=== PATIENT | female | born 1950 | race Two or more races ===

== ENCOUNTER 2020-11-26 10:30 | Inpatient (IN) | payer OTHER ==
[~2020-11-26] VITALS: Ht 154.9 cm; Wt 65.8 kg
[2020-11-26] MEDS ORDERED: NORVASC5 MG PO (15:15)
[2020-11-26] MEDS ORDERED: ATORVASTATIN CA10 MG PO (15:16)
[2020-11-26] MEDS ORDERED: VITAMIN D PO (15:17)
[2020-11-28] MEDS ORDERED: VITAMIN D310 MC4 (09:39)
[2020-12-01] MEDS ORDERED: PERCOCET 5-3251 EACH PO (10:57)
== END 2020-12-01 14:07 | disposition home or self-care (01) | DRG 331 ==
LOC: EDSEX 11-28 06:05 → O/R 11-28 06:05 → SURH 11-28 10:30
PROVIDERS: Obstetrics & Gynecology Gynecologic Oncology; ADMIT Surgery; ATTEND Surgery
PROC: 0UT94ZZ Resection of Uterus, Percutaneous Endoscopic Approach (ICD-10-PCS; 2020-11-28)
PROC: 0UT24ZZ Resection of Bilateral Ovaries, Percutaneous Endoscopic Approach (ICD-10-PCS; 2020-11-28)
PROC: 0UT74ZZ Resection of Bilateral Fallopian Tubes, Percutaneous Endoscopic Approach (ICD-10-PCS; 2020-11-28)
PROC: 0DTF4ZZ Resection of Right Large Intestine, Percutaneous Endoscopic Approach (ICD-10-PCS; principal; 2020-11-28 10:30)
PROC: 07TB4ZZ Resection of Mesenteric Lymphatic, Percutaneous Endoscopic Approach (ICD-10-PCS; 2020-11-28 10:30)
DX: C18.3 Malignant neoplasm of hepatic flexure (principal); N72 Inflammatory disease of cervix uteri; N84.0 Polyp of corpus uteri; N80.0 Endometriosis of uterus; N94.89 Other specified conditions associated with female genital organs and menstrual cycle; N83.8 Other noninflammatory disorders of ovary, fallopian tube and broad ligament; R59.0 Localized enlarged lymph nodes; K59.09 Other constipation; I11.9 Hypertensive heart disease without heart failure; Z86.010 Personal history of colon polyps